=== PATIENT | female | born 1960 | race Caucasian/White ===

== ENCOUNTER 2023-10-05 23:04 | Emergency (ER) | payer BC, SELFPAY ==
[2023-10-05 23:06] VITALS: BP 150/98
[2023-10-06 00:41] LABS: % Basophils 0.9 % (0-2); % Eosinophils 1.9 % (0-6); % Immature Granulocytes 0.3 % (0-0.5); % Lymphocytes 22.1 % (20.5-51.1); % Monocytes 9.1 % (1.7-9.3); % Neutrophils 65.7 % (42.2-75.2); Absolute Basophils 0.1 10^3/uL (0-0.2); Absolute Eosinophils 0.2 10^3/uL (0-0.7); Absolute Lymphocytes 1.7 10^3/uL (1.2-3.4); Absolute Monocytes 0.7 10^3/uL (0.1-0.6); Absolute Neutrophils 5.1 10^3/uL (1.4-6.5); Hematocrit 41.5 % (37.0-47.0); Hemoglobin 13.7 g/dL (12.0-16.0); Mean Corpuscular Hgb 28.7 pg (27.0-31.0); Mean Platelet Volume 10.8 fL (7.4-10.4); Nucleated Red Blood Cells % 0 %; Platelet Count 257 10^3/uL (130-400); Red Blood Cell Count 4.77 10^6/uL (4.20-5.40); Red Cell Dist. Width 12.5 % (11.5-14.5); White Blood Cell Count 7.7 10^3/uL (4.8-10.8)
[2023-10-06 01:05] LABS: Troponin I < 0.012 ng/ml
[2023-10-06 01:11] LABS: ALT (SGPT) 31 U/L (0-35); AST (SGOT) 28 U/L (14-36); Albumin 4.3 g/dl (3.5-5.0); Alkaline Phosphatase 90 U/L (38-126); Blood Urea Nitrogen 23 mg/dl (7-17); Calcium 9.7 mg/dl (8.4-10.2); Carbon Dioxide 27 mmol/L (22-30); Chloride 107 mmol/L (98-107); Glucose 111 mg/dl (70-99); Lipase 105 U/L (23-300); Potassium 4.3 mmol/L (3.5-5.1); Sodium 142 mmol/L (135-145); Total Bilirubin 0.4 mg/dl (0.2-1.3); eGFR > 60.00
[2023-10-06 01:37] VITALS: BMI 28.8
[2023-10-06 02:00] VITALS: BP 133/99
--- NOTE | 2023-10-06 02:16 | ED.GENMED ---
History of Present Illness
<RICHI Johnson - Last Filed: 10/06/23 05:00>
General
Chief Complaint: Chest Pain
Source: patient
Exam Limitations: none
Time Seen by Provider: 10/06/23 01:54
Travel History
Have you had any contact with someone who has COVID-19?: No
Do you have any symptoms of coronavirus? Fever > 100 degrees, chills, cough, shortness of breath, sore throat, loss of taste or smell, muscle aches, or headache?: No
History of Present Illness
History of Present Illness:
62 year old female with hx of breast CA on anastrozole who presents with sudden onset of epigastric abdominal pain that began 2144. Pain came on after dinner and described as 7-8/10 in strength, nonradiating, and pressure like. She reports
associated anxiety and worsened pain with deep respirations. Pt had pork chops, brussel sprouts, onions for dinner. States she has never felt this pain before. She waited about 10 minutes before calling EMS. Prior to EMS arrival pt took Aspirin 81
mg x2 tabs. Pt was instructed to take two more for a total of 4 tabs. States her symptoms have improved and no longer has the pain. Denies fevers/chills, SOB, head ache, dizziness, diaphoresis, weakness, numbness, n/v/d, constipation, dysuria,
hematuria, back pain, flank pain. Denies recent illness.
Review of Systems
<RICHI Johnson - Last Filed: 10/06/23 05:00>
Review of Systems
Allergies reviewed?: Yes
All Other Systems: ROS reviewed and negative except as documented in HPI and ROS
Constitutional: Reports no symptoms
EENT: Reports no symptoms
Respiratory: Reports no symptoms
Cardiac: Reports no symptoms
ABD/GI: Reports abdominal pain (epigastric abdominal pain)
: Reports no symptoms
Musculoskeletal: Reports no symptoms
Skin: Reports no symptoms
Neurological: Reports no symptoms
Endocrine: Reports no symptoms
Hematologic/Lymphatic: Reports no symptoms
Psychiatric: Reports no symptoms
Phy Exam
<RICHI Johnson - Last Filed: 10/06/23 05:00>
General Physical Exam
General Presentation: well appearing and no apparent distress
General age: appears stated age
General Skin: warm and dry
General Habitus: normal
General Mental: alert
General Hydration: appears well hydrated
Cardiovascular Exam
Cardiovascular Exam: regular rate/rhythm, no edema, no gallop, no murmur and normal peripheral pulses
Pulmonary Exam
Pulmonary Exam: lungs clear, no respiratory distress, no rales, no crackles, no rhonchi, no wheezing and no cough
Gastrointestinal Exam
Gastrointestinal Exam: normal bowel sounds, non tender, soft, no pulsatile mass and non distended
Neurological Exam
Neurological Exam: alert and oriented x3
Skin Exam
Skin Exam: normal color and warm/dry
Psychiatric Exam
Psychiatric Exam: normal mood/affect
Scores
<RICHI Johnson - Last Filed: 10/06/23 05:00>
Heart Score for Chest Pain Patients
Heart Score for Chest Pain Patients: 1
Heart Score Risk: 2.5% MACE over next 6 weeks
<Sherry Garvey DO - Last Filed: 10/06/23 04:07>
Heart Score for Chest Pain Patients
STEMI patient?: No
History: Slightly or Non-Suspicious
ECG: Normal
Age: >45 - <65 years
Risk Factors: No Risk Factors
Troponin: </= Normal Limit
Heart Score for Chest Pain Patients: 1
Heart Score Risk: 2.5% MACE over next 6 weeks
Course
<RICHI Johnson - Last Filed: 10/06/23 05:00>
Orders/Labs/Results
Orders:
Orders
10/05/23 23:06
Electrocardiogram (*1) Urgent
Reason for Study: Chest Pain
EKG- Treatment ONCE
10/06/23 00:36
Complete Blood Count/With Diff Urgent
Comprehensive Metabolic Panel Urgent
Lipase Urgent
Troponin I Urgent
10/06/23 02:31
US Abdomen Complete/Upper Urgent
Comment:
Reason For Exam: acute epigastric abd pain
10/06/23 02:42
Troponin I Urgent
Abnormal Lab Results
10/06/23
00:36
MPV 10.8 H fL
(7.4-10.4)
Absolute Monos (auto) 0.7 H 10^3/uL
(0.1-0.6)
BUN 23 H mg/dl
(7-17)
Glucose 111 H mg/dl
(70-99)
10/06/23 00:36
10/06/23 00:36
Vital Signs
Initial and Last Documented VS:
Initial Vital Signs
Temp Pulse Resp BP Pulse Ox
99.6 F 88 16 150/98 99
10/05/23 23:06 10/05/23 23:06 10/05/23 23:06 10/05/23 23:06 10/05/23 23:06
Last Documented Vital Signs
Temp Pulse Resp BP Pulse Ox
99.6 F 80 16 145/97 98
10/05/23 23:06 10/06/23 02:45 10/06/23 02:45 10/06/23 02:30 10/06/23 02:45
<Sherry Garvey, DO - Last Filed: 10/06/23 04:07>
Orders/Labs/Results
Orders:
Orders
10/05/23 23:06
Electrocardiogram (*1) Urgent
Reason for Study: Chest Pain
EKG- Treatment ONCE
10/06/23 00:36
Complete Blood Count/With Diff Urgent
Comprehensive Metabolic Panel Urgent
Lipase Urgent
Troponin I Urgent
10/06/23 02:31
US Abdomen Complete/Upper Urgent
Comment:
Reason For Exam: acute epigastric abd pain
10/06/23 02:42
Troponin I Urgent
Abnormal Lab Results
10/06/23
00:36
MPV 10.8 H fL
(7.4-10.4)
Absolute Monos (auto) 0.7 H 10^3/uL
(0.1-0.6)
BUN 23 H mg/dl
(7-17)
Glucose 111 H mg/dl
(70-99)
10/06/23 00:36
10/06/23 00:36
Vital Signs
Initial and Last Documented VS:
Initial Vital Signs
Temp Pulse Resp BP Pulse Ox
99.6 F 88 16 150/98 99
10/05/23 23:06 10/05/23 23:06 10/05/23 23:06 10/05/23 23:06 10/05/23 23:06
Last Documented Vital Signs
Temp Pulse Resp BP Pulse Ox
99.6 F 80 16 145/97 98
10/05/23 23:06 10/06/23 02:45 10/06/23 02:45 10/06/23 02:30 10/06/23 02:45
<RICHI Johnson - Last Filed: 10/06/23 05:00>
MDM/Problems Addressed
Differential Diagnosis Includes:
acid reflux, muscular spasm, pancreatitis, cholecystitis, OR
MDM/Problems Addressed:
62 year old female who presents with epigastric pain that began at 2144.
Chronic conditions affecting care: Cancer (breast)
<RICHI Johnson - Last Filed: 10/06/23 05:00>
*Critical Care Note
Total Time (30-74mins, 75-104mins- exclusive of procedures): Not Applicable
<Sherry Garvey DO - Last Filed: 10/06/23 04:07>
*Radiology
Radiology exam reviewed: radiology read reviewed
*Pulse Oximetry
Patient hypoxic: no
*EKG
Interpreted by ED Provider?: Yes
Interpretation: normal
Comparison EKG: no comparison EKG present
Rate: normal
Rhythm: sinus
[place]: normal axis
Interval: normal interval
QRS Pattern: normal QRS
Ischemia: no ischemia
*Anger Control Counselor Interpretation
Rate: normal
Interpretation: normal
Rhythm: sinus
ED Attending Note
<RICHI Johnson - Last Filed: 10/06/23 05:00>
-
Portions of this chart may have been created with voice recognition software.� Occasional wrong word or��sound alike� substitutions may have occurred due to the inherent limitations of voice recognition software.
<Sherry Garvey DO - Last Filed: 10/06/23 04:07>
ED Attending Note
Patient seen and examined by attending physician: Yes
I performed the substantive portion of visit, reviewed & personally made and approve the management plan that is documented in note by myself or GLENN.: Yes
I performed a history and physical exam of patient and discussed management with resident, I reviewed resident's note and agree with documented findings and plan of care.: Yes
ED Attending Note:
This is a 62-year-old woman with prior history of breast cancer who complains of epigastric abdominal discomfort that began mildly a few hours after dinner but seem to worsen around 10 PM radiating to her lower chest and across to her upper abdomen.
Epigastric abdominal pain described as a burning and a pressure. No history of similar episodes in the past. She denies back pain, no nausea or vomiting, no diaphoresis, no dizziness or lightheadedness, no palpitations.
She did take 2 baby aspirin and then after calling 911 was instructed to take an additional 2 baby aspirin.
EMS arrived and EMS EKG shows normal sinus rhythm with questionable mild ST depression inferiorly without reciprocal changes. Patient declined transport by EMS but then brought herself to the ED with her .
Epigastric pain improving en route to the hospital but has not completely resolved.
Dinner was at 6:30 PM she had pork chops, fried onions, broccoli.
GENERAL: 62-year-old woman appears her stated age, bright and alert, pleasant, appears in no acute distress. is accompanying.
EYE: anicteric
NECK: Supple, nontender, no meningismus, no significant adenopathy.
ENT: oral mucosa is moist. No rhinorrhea.
CARDIAC: Regular rate and rhythm. no murmur.
LUNGS: Clear breath sounds bilaterally, no acute respiratory distress, no wheezes/rales/rhonchi
ABDOMEN: Soft, nondistended, mild tenderness epigastric region, no r/g, no cvat. normoactive BS.
NEUROLOGICAL: Alert and oriented x3, no focal neuro deficits.
SKIN: Warm and dry, normal color, skin intact. No rash.
MUSCULOSKELETAL: No C/C/E. peripheral pulses are full and equal b/l. No palpable tenderness.
PSYCH: Normal and appropriate interaction.
Concern for acute gastritis/GERD, biliary colic/cholecystitis, ACS.
EKG upon arrival to the ED is unremarkable, normal sinus rhythm, normal axis, normal intervals, no acute ST-T wave abnormalities.
Labs thus far are unremarkable with normal CBC, unremarkable chemistries. Normal LFTs including normal lipase. Troponin is negative.
Will plan to repeat troponin now and will check abdominal ultrasound.
10/06/2023 0404 AM
Repeat troponin remains negative.
Ultrasound shows cholelithiasis without cholecystitis. Negative López sign. Common bile duct normal at 4 mm.
I suspect patient's epigastric pain upper abdominal pain is biliary colic in nature.
Currently comfortable. Labs are unremarkable.
Recommend she initiate a strict low-fat/nonfat diet.
Will refer to general surgery for follow-up.
Return precautions discussed.
Discharge Plan
Departure
Patient Disposition: Home (Routine Discharge)
Date of Disposition: 10/06/23
Time of Disposition: 04:05
Patient with high blood pressure during this ER visit?: No
Condition: Good
Discharge Problem:
acute biliary colic, Cholelithiases
Instructions: Gallstones (DC), Low-fat diet
Referrals:
Thom Reardon MD [Active] - Call in 1-3 days for appt
Norman Kaur DO [Family Provider] - Call in 1-3 days for appt
Interventions
Interventions:
*Risk Screen - Suicide Last Done: 10/05/23 23:06
*General Assessment Last Done: 10/05/23 23:06
*Neglect/Abuse Screening Last Done: 10/05/23 23:06
ED- Fall Risk Assessment Last Done: 10/06/23 01:37
*ED COVID-19 Vaccine History Last Done: 10/06/23 01:37
*Nursing Disposition Last Done: 10/06/23 04:38
ED- Cardiac Assessment Last Done: 10/06/23 01:37
Discharge Date and Time
Discharge Date/Time: 10/06/23 04:39
Print Language: MACANESE
[2023-10-06 02:30] VITALS: BP 145/97
[2023-10-06 03:34] LABS: Troponin I < 0.012 ng/ml
== END 2023-10-06 04:39 | disposition home or self-care (01) ==
LOC: EMR 23:04
PROVIDERS: EMERGENCY PHYSICIAN Emergency Medicine; FAMILY PHYSICIAN Internal Medicine
DX: K80.51 Calculus of bile duct without cholangitis or cholecystitis with obstruction (principal)
CPT/HCPCS: 99285; 76700; 80053; 83690; 84484; 85025; 93005

== ENCOUNTER → 2024-02-09 07:44 | Outpatient (REF) | payer BC, SELFPAY | LOC: RAD 07:44 | PROVIDERS: ATTENDING PHYSICIAN Nurse Practitioner Primary Care | DX: R63.4 Abnormal weight loss (principal); K80.20 Calculus of gallbladder without cholecystitis without obstruction; Z85.3 Personal history of malignant neoplasm of breast | CPT/HCPCS: 71260; 74177; Q9967 ==

== ENCOUNTER 2024-02-17 05:50 | Day surgery (SDC) | payer BC, SELFPAY ==
[2024-02-07 08:49] VITALS: BMI 23.4
[2024-02-07 10:34] LABS: Hematocrit 43.7 % (37.0-47.0); Hemoglobin 14.1 g/dL (12.0-16.0); Mean Corp Hgb Conc. 32.3 g/dL (33.0-37.0); Mean Corpuscular Hgb 29.3 pg (27.0-31.0); Mean Corpuscular Volume 90.7 fL (81.0-99.0); Mean Platelet Volume 12.2 fL (7.4-10.4); Platelet Count 238 10^3/uL (130-400); Red Blood Cell Count 4.82 10^6/uL (4.20-5.40); Red Cell Dist. Width 12.8 % (11.5-14.5); White Blood Cell Count 4.7 10^3/uL (4.8-10.8)
[2024-02-07 11:12] LABS: ALT (SGPT) 27 U/L (0-35); AST (SGOT) 24 U/L (14-36); Albumin 4.3 g/dl (3.5-5.0); Alkaline Phosphatase 54 U/L (38-126); Blood Urea Nitrogen 13 mg/dl (7-17); Calcium 9.5 mg/dl (8.4-10.2); Carbon Dioxide 28 mmol/L (22-30); Chloride 105 mmol/L (98-107); Estimated Creatinine Clearance 78 ml/min; Glucose 89 mg/dl (70-99); Potassium 4.2 mmol/L (3.5-5.1); Sodium 144 mmol/L (135-145); Total Bilirubin 0.8 mg/dl (0.2-1.3); Total Protein 6.5 g/dl (6.3-8.2); eGFR > 60.00
--- NOTE | 2024-02-14 16:09 | PTCARENOTE ---
Abn ECG, Dr. Nguyen notified, no additional actions requested.
[2024-02-17] VITALS (12 sets, daily range): BP systolic 103–128; BP diastolic 53–76; BMI 23.4
[2024-02-17] MEDS: TYLENOL 1000 MG PO (07:04)
[2024-02-17] MEDS: NORMOSOL-R/PLASMALYTE-A 1000 IV (07:04)
--- NOTE | 2024-02-17 07:10 | HP.FOC2 ---
Focused History & Physical
Chief Complaint
HPI:
Chief Complaint: Symptomatic cholelithiasis
HPI / Indication for Planned Procedure: 63-year-old female with episode of postprandial epigastric abdominal pain found to have gallstones on ultrasound imaging during emergency department evaluation. Presents today for cholecystectomy.
Relevant Past Medical History: Other (History of breast cancer, cholelithiasis)
Relevant Social History: Negative
Relevant Family History: Negative
Relevant Past Surgical History: Positive for (Tonsillectomy, left breast excisional biopsy/lumpectomy, right foot metatarsal fracture 2016)
Review of Systems
Review of Pertinent Systems: All Systems Negative
Medication
See Medication form for detailed medications: Yes
Medication List (including Herbals & OTC):
anastrozole 1 mg tablet 1 mg PO DAILY 02/08/24
ascorbic acid (vitamin C) 500 mg tablet (Vitamin C) 1 mg DAILY 02/08/24
cholecalciferol (vitamin D3) 50 mcg (2,000 unit) capsule (Vitamin D3) 50 mcg PO DAILY 02/08/24
Medications Reviewed: Yes
Allergies and Reactions
Patient has Allergies: Yes
Noted Allergies and Reactions:
Allergy/AdvReac Type Severity Reaction Status Date / Time
cefprozil Allergy Unknown Hives Verified 02/17/24 06:42
Pertinent Physical Exam
All Other Systems: Negative
Head/Neck: Normal
Lungs: Normal
Heart: Normal
Abdomen: Normal
Extremities: Normal
Neurological: Normal
Diagnosis / Assessment
63-year-old female presenting for cholecystectomy in the setting of suspected symptomatic cholelithiasis
Plan / Procedure
Laparoscopic cholecystectomy with intraoperative cholangiogram
Anesthesia/Sedation to be done by Anesthesia Provider: Yes
--- NOTE | 2024-02-17 07:13 | W.SUR.PREOP ---
Pre-Operative Surgical Note
-
I have examined this patient prior to the performance of the scheduled procedure.
The patient's condition is unchanged from the time of the current History and
Physical and the patient is able to undergo the scheduled procedure.
--- NOTE | 2024-02-17 09:33 | W.IMMPOSTOP ---
Addendum entered and electronically signed by Bora Dent MD 02/17/24 09:45:
#[id number]
Original Note:
Surgical Immed Post Op Note
-
Primary Surgeon: Filipe
Assisting Surgeon: Sakina Sun PA-c
Pre-op Diagnosis: Symptomatic cholelithiasis
Post-op Diagnosis: Symptomatic cholelithiasis
Procedure Performed: Laparoscopic cholecystectomy
Anesthesia Type: GETA +0.25% Marcaine with epi
Specimen / Cultures: Gallbladder/none
Estimated Blood Loss: 18 mL
Complications: None immediate
Operative Findings: Physiologically distended gallbladder. Cystic duct and artery were individually identified and controlled with hemoclips. Intraoperative cholangiogram abandoned as unable to thread cholangiocatheter through diminutive cystic
duct with associated valves. There was retrograde bile coming out of duct anatomy and no palpable stones within the cystic duct. Anatomy clearly identified through critical view of safety. Falciform ligament with large open window as potential
for internal hernia divided to open.
updated postoperatively in waiting area
The assistance of Sakina Sun PA-C was required due to the complexity of the procedure. During the procedure Sakina Sun PA-C assisted with retraction, managing laparoscopic camera, cholecystectomy, and closure of the surgical sites.
[2024-02-17] MEDS: DILAUDID 0.25 MG IV (10:07)
[2024-02-17] MEDS: ZOFRAN 4 MG IV (10:11)
--- NOTE | 2024-02-17 10:29 | SUR.PHASEI ---
patient anxious though sleepy, c/o pain, cannot rate. 'what do other patients say?' Explained pain is individualized. c/o some pain, maybe some nausea, but ' doesn't like narcotics'. Grimacing. Medicated with Dilaudid 0.25mg IV for pain, while
administering c/o 'maybe some nausea' - Zofran 4mg given IV. Now sleeping soundly. O2 off.
== END 2024-02-17 13:02 | disposition home or self-care (01) ==
LOC: SDS 05:50
PROVIDERS: ATTENDING PHYSICIAN Surgery; FAMILY PHYSICIAN Internal Medicine; REFERRING PHYSICIAN Nurse Practitioner Primary Care
DX: K80.10 Calculus of gallbladder with chronic cholecystitis without obstruction (principal)
CPT/HCPCS: 47562; 88304; 36415; 80053; 85027; A4300